=== PATIENT | female | born 2000 | race Two or more races ===

== ENCOUNTER 2020-07-15 22:33 | Emergency (ER) | payer BC ==
[~2020-07-15] VITALS: Ht 157.5 cm; Wt 65.8 kg
[2020-07-15] MEDS ORDERED: ACETAMINOPHEN 325 MG TABLET PO ONE (23:00)
[2020-07-15] MEDS ORDERED: ACETAMINOPHEN ES 500 MG TABLET ONE (23:12)
[2020-07-15 23:32] VITALS: BP 125/70
--- NOTE | 2020-07-15 23:32 | NUR ---
Patient discharged to home in stable condition. Written and verbal after care instructions given. Patient verbalizes understanding of instructions. Stressed follow up or return to ER for worsening s/s. Ambulated from ER with stable gait. All belongings with patient.
== END 2020-07-15 23:32 | disposition home or self-care (01) ==
LOC: ER 22:36
DX: S60.221A Contusion of right hand, initial encounter (principal); W20.8XXA Other cause of strike by thrown, projected or falling object, initial encounter; Y92.89 Other specified places as the place of occurrence of the external cause
CPT/HCPCS: 73130; A4663; A9150

== ENCOUNTER 2020-07-27 23:30 | Emergency (ER) | payer BC ==
[~2020-07-27] VITALS: Ht 165.1 cm; Wt 65.8 kg
[2020-07-28 00:40] LABS: *BILIRUBIN,URIN NEGATIVE (NEGATIVE); *CLARITY,URINE SLIGHTLY CLOUDY (CLEAR); *COLOR,URINE YELLOW (YELLOW); *KETONES,URINE NEGATIVE (NEGATIVE); *UROBILINOGEN,URINE 0.2 E.U./dl (NORMAL); LEUKOCYTE ESTERASE ,URINE NEGATIVE (NEGATIVE); NITRITE, URINE NEGATIVE (NEGATIVE); UGLUCOSE NEGATIVE (NEGATIVE)
[2020-07-28 00:42] LABS: BASOPHILS % (AUTO) 0.6 % (0.0-2.0); EOSINOPHILS % (AUTO) 0.4 % (0.0-7.0); HEMATOCRIT 43.2 % (31.2-41.9); HEMOGLOBIN 14.4 g/dL (10.9-14.3); LYMPHOCYTES # (AUTO) 1.3 K/uL (20.0-40.0); LYMPHOCYTES % (AUTO) 23.3 % (20.5-51.5); MEAN CORPUSCULAR HEMOGLOBIN 28.4 uug (24.7-32.8); MEAN CORPUSCULAR HGB CONC 33 g/dL (32.3-35.6); MEAN CORPUSCULAR VOLUME 85.4 fL (75.5-95.3); MONOCYTES # (AUTO) 0.7 K/uL (2.0-10.0); NEUTROPHILS # (AUTO) 3.5 K/uL (1.8-8.9); NEUTROPHILS % (AUTO) 63.7 % (38.5-71.5); PLATELET COUNT (AUTO) 299 K/uL (179-408); RED BLOOD CELL COUNT(AUTO) 5.06 MIL/uL (3.63-4.92); WHITE BLOOD COUNT (AUTO) 5.6 K/uL (3.8-11.8)
[2020-07-28 00:43] LABS: *BLOOD, URINE NEGATIVE (NEGATIVE)
[2020-07-28 01:05] LABS: *URINE HCG, QUAL NEGATIVE (NEGATIVE)
[2020-07-28 01:06] LABS: RBC,URINE 0-3 /HPF (0-3)
[2020-07-28 01:07] LABS: CREATININE 0.9 mg/dL (0.6-1.3); POTASSIUM 3.6 mmol/L (3.5-5.1)
[2020-07-28 01:07] LABS: BACTERIA,URINE NONE SEEN /HPF (NONE SEEN); MUCUS,URINE FEW /LPF (0-FEW); SQUAMOUS EPITHELIAL CELL,UR MANY /HPF (NONE SEEN); URINE AMORPHOUS URATE FEW /HPF
[2020-07-28 01:12] LABS: BILIRUBIN,DIRECT 0.5 mg/dL (0.0-0.2); BILIRUBIN,TOTAL 0.2 mg/dL (0.2-1.0); TOTAL PROTEIN, SERUM 8.3 g/dL (6.4-8.2)
[2020-07-28] MEDS ORDERED: LIDOCAINE VISCUS 2% 15 ML UDC MM ONE (01:15)
[2020-07-28] MEDS ORDERED: MAG HYDROX/AL HYDROX/SIMETH 30 ML LIQUID UDC PO ONE (01:15)
[2020-07-28] MEDS ORDERED: DICYCLOMINE HCL LIQ 10 MG/5 ML UDC PO ONE (01:15)
[2020-07-28] MEDS ORDERED: MAG HYDROX/AL HYDROX/SIMETH 30 ML LIQUID UDC ONE (01:21)
[2020-07-28] MEDS ORDERED: LIDOCAINE VISCUS 2% 15 ML UDC ONE (01:22)
[2020-07-28] MEDS ORDERED: DICYCLOMINE HCL LIQ 10 MG/5 ML UDC ONE (01:22)
[2020-07-28] MEDS ORDERED: DICY20TA11 PO ×2 (02:27→02:36)
--- NOTE | 2020-07-28 02:50 | NUR ---
Patient states "I feel better now."
--- NOTE | 2020-07-28 03:02 | NUR ---
Patient discharged to home in stable condition. Written and verbal after care instructions given. Patient verbalizes understanding of instructions. Stressed follow up or return to ER for worsening s/s.
[2020-07-28 03:03] VITALS: BP 105/72
== END 2020-07-28 03:07 | disposition home or self-care (01) ==
LOC: ER 23:32
DX: R10.13 Epigastric pain (principal); R10.12 Left upper quadrant pain; R80.9 Proteinuria, unspecified; E28.2 Polycystic ovarian syndrome
CPT/HCPCS: 36415; 83690; 84703; 85025; 87086; A4663

== ENCOUNTER 2020-08-22 13:59 | Emergency (ER) | payer BC ==
[~2020-08-22] VITALS: Ht 157.5 cm; Wt 66.2 kg
[~2020-08-22 13:59] MED LIST: DICY20TA11 PO
[2020-08-22] MEDS ORDERED: LIDOCAINE VISCUS 2% 15 ML UDC MM ONE (14:15)
[2020-08-22] MEDS ORDERED: PANTOPRAZOLE SODIUM 40 MG TABLET.DR PO ONE ×2 (14:15→14:28)
[2020-08-22] MEDS ORDERED: MAG HYDROX/AL HYDROX/SIMETH 30 ML LIQUID UDC PO ONE (14:15)
--- NOTE | 2020-08-22 14:20 | NUR ---
Pt c/o "sharp" and "burning" pain in LUQ & RUQ, ongoing for about 1 year, 11/06 now. Pt has endoscopy scheduled in a couple weeks. Pt also c/o slight dizziness. Pt denies CP, SOB, n/v, no other complaints, no distress noted.
[2020-08-22] MEDS ORDERED: LIDOCAINE VISCUS 2% 15 ML UDC ONE (14:28)
[2020-08-22] MEDS ORDERED: MAG HYDROX/AL HYDROX/SIMETH 30 ML LIQUID UDC ONE (14:28)
[2020-08-22] MEDS ORDERED: OMEP20TA20 PO (15:09)
--- NOTE | 2020-08-22 15:38 | NUR ---
Pt did not want to wait for [facility] to take effect.
--- NOTE | 2020-08-22 15:38 | NUR ---
Pt c/o her pain hadgotten worse, informed, wrote for [facility]. Gave pt RX and d/c instructions, pt verbalized understanding.
[2020-08-22] MEDS ORDERED: HYDROCODONE/APAP 5-325MG TABLET ONE (15:43)
[2020-08-22] MEDS ORDERED: HYDROCODONE/APAP 5-325MG TABLET PO ONE (15:45)
== END 2020-08-22 15:40 | disposition home or self-care (01) ==
LOC: ER 13:59
DX: K29.70 Gastritis, unspecified, without bleeding (principal); Z82.49 Family history of ischemic heart disease and other diseases of the circulatory system
CPT/HCPCS: A4663

== ENCOUNTER 2020-09-01 12:13 | Outpatient (CLI) | payer BC, OTHER ==
[~2020-09-01 12:13] MED LIST changes: +OMEP20TA20 PO
[2020-09-01 12:45] LABS: BASOPHILS # (AUTO) 0.1 K/uL (0.0-8.0); BASOPHILS % (AUTO) 0.7 % (0.0-2.0); EOSINOPHILS # (AUTO) 0.2 K/uL (0.0-0.7); EOSINOPHILS % (AUTO) 2.2 % (0.0-7.0); HEMOGLOBIN 13.9 g/dL (10.9-14.3); LYMPHOCYTES # (AUTO) 2.2 K/uL (20.0-40.0); LYMPHOCYTES % (AUTO) 22.2 % (20.5-51.5); MEAN CORPUSCULAR HEMOGLOBIN 28.1 uug (24.7-32.8); MEAN CORPUSCULAR HGB CONC 33 g/dL (32.3-35.6); MEAN CORPUSCULAR VOLUME 84.8 fL (75.5-95.3); MONOCYTES # (AUTO) 0.6 K/uL (2.0-10.0); MONOCYTES % (AUTO) 5.9 % (0.0-11.0); NEUTROPHILS # (AUTO) 6.8 K/uL (1.8-8.9); PLATELET COUNT (AUTO) 385 K/uL (179-408); RED BLOOD CELL COUNT(AUTO) 4.96 MIL/uL (3.63-4.92); WHITE BLOOD COUNT (AUTO) 9.9 K/uL (3.8-11.8)
[2020-09-01 12:57] LABS: BILIRUBIN,TOTAL 0.3 mg/dL (0.2-1.0); CREATININE 0.9 mg/dL (0.6-1.3); POTASSIUM 3.7 mmol/L (3.5-5.1)
[2020-09-02 11:31] LABS: HEPATITIS Be ANTIGEN NEGATIVE
== END 2020-09-01 23:59 | disposition home or self-care (01) ==
LOC: LAB 12:13
PROVIDERS: ATTEND Internal Medicine Gastroenterology
DX: R10.13 Epigastric pain (principal)
CPT/HCPCS: 85025; 85610; 85730; 86704; 86803; 87350; 87521

== ENCOUNTER 2020-09-10 06:30 | Outpatient (CLI) | payer BC, OTHER | END 2020-09-10 23:59 | disposition home or self-care (01) | LOC: LAB 06:30 | PROVIDERS: ATTEND Internal Medicine Gastroenterology | DX: Z01.812 Encounter for preprocedural laboratory examination (principal); Z20.822 Contact with and (suspected) exposure to COVID-19 ==

== ENCOUNTER 2020-09-13 11:08 | Day surgery (SDC) | payer BC, OTHER ==
[2020-09-13] MEDS ORDERED: PROPOFOL 200 MG/20 ML BOTTLE IV ONE (11:09)
[2020-09-13 11:39] LABS: *BILIRUBIN,URIN NEGATIVE (NEGATIVE); *BLOOD, URINE NEGATIVE (NEGATIVE); *CLARITY,URINE SLIGHTLY CLOUDY (CLEAR); *COLOR,URINE YELLOW (YELLOW); *KETONES,URINE NEGATIVE (NEGATIVE); *UROBILINOGEN,URINE 0.2 E.U./dl (NORMAL); LEUKOCYTE ESTERASE ,URINE 1+ (NEGATIVE); NITRITE, URINE NEGATIVE (NEGATIVE); UGLUCOSE NEGATIVE (NEGATIVE)
[2020-09-13 11:45] LABS: *URINE HCG, QUAL NEGATIVE (NEGATIVE)
[2020-09-13 13:26] LABS: RBC,URINE 0-3 /HPF (0-3)
[2020-09-13 13:27] LABS: BACTERIA,URINE MODERATE /HPF (NONE SEEN); SQUAMOUS EPITHELIAL CELL,UR MODERATE /HPF (NONE SEEN)
[2020-09-13] MEDS ORDERED: FENTANYL CITRATE 100 MCG/2 ML AMPUL ONE (14:06)
== END 2020-09-13 15:46 | disposition home or self-care (01) ==
LOC: DS 11:08
PROVIDERS: ATTEND Internal Medicine Gastroenterology
DX: R10.13 Epigastric pain (principal); K29.50 Unspecified chronic gastritis without bleeding; K31.89 Other diseases of stomach and duodenum; F41.9 Anxiety disorder, unspecified; Z79.899 Other long term (current) drug therapy; Z98.890 Other specified postprocedural states; Z72.89 Other problems related to lifestyle
CPT/HCPCS: 43239; 81001; 84703; 87086; J3010; J7120; A4663; J3490

== ENCOUNTER 2020-09-19 19:14 | Emergency (ER) | payer BC, OTHER ==
[~2020-09-19] VITALS: Ht 157.5 cm; Wt 65.8 kg
[2020-09-19 19:29] LABS: *BILIRUBIN,URIN NEGATIVE (NEGATIVE); *BLOOD, URINE 3+ (NEGATIVE); *CLARITY,URINE SLIGHTLY CLOUDY (CLEAR); *COLOR,URINE YELLOW (YELLOW); *KETONES,URINE TRACE (NEGATIVE); *UROBILINOGEN,URINE 0.2 E.U./dl (NORMAL); LEUKOCYTE ESTERASE ,URINE NEGATIVE (NEGATIVE); NITRITE, URINE NEGATIVE (NEGATIVE); UGLUCOSE NEGATIVE (NEGATIVE)
[2020-09-19 19:31] LABS: *URINE HCG, QUAL NEGATIVE (NEGATIVE)
[2020-09-19 19:38] LABS: BACTERIA,URINE FEW /HPF (NONE SEEN); SQUAMOUS EPITHELIAL CELL,UR MODERATE /HPF (NONE SEEN); WBC,URINE TNTC /HPF (0-3)
--- NOTE | 2020-09-19 19:41 | NUR ---
Dr. Guidry at bedside for MSE.
[2020-09-19] MEDS ORDERED: CEFTRIAXONE /D5W 50ML IVPB **ER PYXIS IV ONE (20:00)
--- NOTE | 2020-09-19 20:08 | NUR ---
Patient refused IV, requested if can get IM rocephin instead. notified.
[2020-09-19 20:10] LABS: BASOPHILS % (AUTO) 0.6 % (0.0-2.0); EOSINOPHILS # (AUTO) 0.2 K/uL (0.0-0.7); HEMATOCRIT 40.2 % (31.2-41.9); HEMOGLOBIN 13.5 g/dL (10.9-14.3); LYMPHOCYTES # (AUTO) 1.9 K/uL (20.0-40.0); MEAN CORPUSCULAR HEMOGLOBIN 28.5 uug (24.7-32.8); MEAN CORPUSCULAR HGB CONC 34 g/dL (32.3-35.6); MEAN CORPUSCULAR VOLUME 84.6 fL (75.5-95.3); MONOCYTES # (AUTO) 0.5 K/uL (2.0-10.0); MONOCYTES % (AUTO) 6.3 % (0.0-11.0); NEUTROPHILS % (AUTO) 69.1 % (38.5-71.5); PLATELET COUNT (AUTO) 327 K/uL (179-408); RED BLOOD CELL COUNT(AUTO) 4.75 MIL/uL (3.63-4.92); WHITE BLOOD COUNT (AUTO) 8.7 K/uL (3.8-11.8)
[2020-09-19] MEDS ORDERED: LIDOCAINE HCL 1% 20 ML VIAL ONE (20:10)
[2020-09-19] MEDS ORDERED: CEFTRIAXONE 1 G VIAL ONE (20:10)
[2020-09-19] MEDS: CEFTRIAXONE 1 G in IV DEXTROSE 5% 50 ML IV ONE (20:12)
[2020-09-19] MEDS: CEFTRIAXONE 1 G VIAL IM ONE (20:14)
[2020-09-19 20:19] LABS: CARBON DIOXIDE 27 mmol/L (21-32); CHLORIDE 106 mmol/L (98-107); CREATININE 0.9 mg/dL (0.6-1.3); GLUCOSE 108 mg/dL (74-106); POTASSIUM 3.9 mmol/L (3.5-5.1); UREA NITROGEN, BLOOD 8 mg/dL (7-18)
--- NOTE | 2020-09-19 20:24 | NUR ---
Ultrasound at bedside.
[2020-09-19] MEDS ORDERED: PHEN-704 PO (21:47)
[2020-09-19] MEDS ORDERED: SULF1TAB48 PO (21:47)
--- NOTE | 2020-09-19 21:52 | NUR ---
Patient discharged to home in stable condition. Written and verbal after care instructions given. Patient verbalizes understanding of instructions. Stressed follow up or return to ER for worsening s/s. Patient out of ER with steady gait, no acute signs of distress, VSS, all belongings taken, provided with copies of lab and ultrasound results.
[2020-09-19 21:53] VITALS: BP 134/86
== END 2020-09-19 21:53 | disposition home or self-care (01) ==
LOC: ER 19:16
DX: O03.9 Complete or unspecified spontaneous abortion without complication (principal); O86.22 Infection of bladder following delivery; R00.0 Tachycardia, unspecified
CPT/HCPCS: 36415; 76856; 80048; 81001; 84702; 84703; 85025; 85730; 87086; 96372; 99284; J0696; J3490; A4663

== ENCOUNTER → 2020-10-01 | Outpatient (CLI) | payer BC, OTHER ==
[~2020-10-01] MED LIST changes: +PHEN-704 PO; +SULF1TAB48 PO
== END | disposition home or self-care (01) ==
LOC: LAB 08:50
PROVIDERS: ATTEND Psychiatry & Neurology Neurology
DX: D49.7 Neoplasm of unspecified behavior of endocrine glands and other parts of nervous system (principal)
CPT/HCPCS: 84146

== ENCOUNTER → 2020-10-08 | Outpatient (CLI) | payer BC, OTHER | END | disposition home or self-care (01) | LOC: LAB 14:42 | PROVIDERS: ATTEND Internal Medicine Gastroenterology | DX: K29.70 Gastritis, unspecified, without bleeding (principal); R14.0 Abdominal distension (gaseous) | CPT/HCPCS: 85651; 86140 ==

== ENCOUNTER 2021-05-03 06:37 | Outpatient (CLI) | payer BC, OTHER | END 2021-05-03 23:59 | disposition home or self-care (01) | LOC: EDSEX → LAB 06:37 | PROVIDERS: ATTEND Internal Medicine Gastroenterology | DX: Z01.812 Encounter for preprocedural laboratory examination (principal); Z20.822 Contact with and (suspected) exposure to COVID-19; R19.7 Diarrhea, unspecified ==

== ENCOUNTER 2021-05-05 11:16 | Day surgery (SDC) | payer BC, OTHER ==
[2021-05-05] MEDS ORDERED: LIDOCAINE-MPF 2% 5 ML VIAL IJ ONE (11:17)
[2021-05-05] MEDS ORDERED: PROPOFOL 200 MG/20 ML BOTTLE IV ONE (11:17)
[2021-05-05 11:53] LABS: HEMATOCRIT 44.8 % (31.2-41.9); MEAN CORPUSCULAR HEMOGLOBIN 28.7 uug (24.7-32.8); MEAN CORPUSCULAR VOLUME 85.4 fL (75.5-95.3); PLATELET COUNT (AUTO) 339 K/uL (179-408)
[2021-05-05 11:55] LABS: *BILIRUBIN,URIN NEGATIVE (NEGATIVE); *BLOOD, URINE 3+ (NEGATIVE); *CLARITY,URINE CLEAR (CLEAR); *COLOR,URINE YELLOW (YELLOW); *KETONES,URINE NEGATIVE (NEGATIVE); *UROBILINOGEN,URINE 0.2 E.U./dl (NORMAL); LEUKOCYTE ESTERASE ,URINE TRACE (NEGATIVE); NITRITE, URINE NEGATIVE (NEGATIVE); PH,URINE 5.5 (5.0-8.0); UGLUCOSE NEGATIVE (NEGATIVE)
[2021-05-05 11:56] LABS: *URINE HCG, QUAL NEG (NEGATIVE)
[2021-05-05 12:02] LABS: CREATININE 0.9 mg/dL (0.6-1.3); POTASSIUM 3.4 mmol/L (3.5-5.1)
[2021-05-05 12:08] LABS: BILIRUBIN,TOTAL 0.4 mg/dL (0.2-1.0); TOTAL PROTEIN, SERUM 8.2 g/dL (6.4-8.2)
[2021-05-05 17:49] LABS: BACTERIA,URINE 1 /HPF (NONE SEEN); RBC,URINE 20-50 /HPF (0-3); SQUAMOUS EPITHELIAL CELL,UR MANY /HPF (NONE SEEN)
== END 2021-05-05 13:50 | disposition home or self-care (01) ==
LOC: DS 11:16
PROVIDERS: ATTEND Internal Medicine Gastroenterology
DX: R19.7 Diarrhea, unspecified (principal); K64.8 Other hemorrhoids; K63.5 Polyp of colon; K63.89 Other specified diseases of intestine; F41.9 Anxiety disorder, unspecified; F32.9 Major depressive disorder, single episode, unspecified; Z79.899 Other long term (current) drug therapy; Z98.890 Other specified postprocedural states; Z72.89 Other problems related to lifestyle
CPT/HCPCS: 36415; 45380; 80053; 81001; 84703; 85025; 85730; J3490; J7120; A4217; A4663

== ENCOUNTER 2021-05-10 15:17 | Outpatient (CLI) | payer BC, OTHER | END 2021-05-10 23:59 | disposition home or self-care (01) | LOC: LAB 15:17 | PROVIDERS: ATTEND Psychiatry & Neurology Neurology | DX: D35.2 Benign neoplasm of pituitary gland (principal) | CPT/HCPCS: 36415; 84146 ==

== ENCOUNTER 2021-07-09 10:16 | Emergency (ER) | payer BC, OTHER ==
[~2021-07-09] VITALS: Ht 160 cm; Wt 61.2 kg
--- NOTE | 2021-07-09 10:53 | NUR ---
[email or web address], medical screening exam in progress.
[2021-07-09 11:05] LABS: HEMATOCRIT 44.1 % (31.2-41.9); MEAN CORPUSCULAR HEMOGLOBIN 28.9 uug (24.7-32.8); MEAN CORPUSCULAR VOLUME 86.3 fL (75.5-95.3); PLATELET COUNT (AUTO) 368 K/uL (179-408)
[2021-07-09 11:08] LABS: *BILIRUBIN,URIN 1+ (NEGATIVE); *CLARITY,URINE CLEAR (CLEAR); *COLOR,URINE YELLOW (YELLOW); *KETONES,URINE TRACE (NEGATIVE); *UROBILINOGEN,URINE 0.2 E.U./dl (NORMAL); LEUKOCYTE ESTERASE ,URINE NEGATIVE (NEGATIVE); NITRITE, URINE NEGATIVE (NEGATIVE); UGLUCOSE NEGATIVE (NEGATIVE)
[2021-07-09 11:12] LABS: CARBON DIOXIDE 22 mmol/L (21-32); CHLORIDE 105 mmol/L (98-107); GLUCOSE 89 mg/dL (74-106); POTASSIUM 3.7 mmol/L (3.5-5.1); UREA NITROGEN, BLOOD 9 mg/dL (7-18)
[2021-07-09 11:13] LABS: *BLOOD, URINE TRACE (NEGATIVE)
--- NOTE | 2021-07-09 12:24 | NUR ---
All tests' results were provided to patient. Patient discharged to home in stable condition. Written and verbal after care instructions given to patient. Patient verbalized understanding and compliance of instructions. Stressed follow up OB-Gyne and primary doctor or return to ER for worsening s/s.
[2021-07-09 12:48] LABS: BACTERIA,URINE FEW /HPF (NONE SEEN); RBC,URINE 0-3 /HPF (0-3); SQUAMOUS EPITHELIAL CELL,UR FEW /HPF (NONE SEEN); WBC,URINE 0-3 /HPF (0-3)
[2021-07-09 12:50] LABS: URINE AMORPHOUS URATE MODERATE /HPF
== END 2021-07-09 12:27 | disposition home or self-care (01) ==
LOC: ER 10:19
DX: N93.9 Abnormal uterine and vaginal bleeding, unspecified (principal); D49.7 Neoplasm of unspecified behavior of endocrine glands and other parts of nervous system
CPT/HCPCS: 36415; 76856; 85025; 85730; 86850; 86900; 86901; A4663